=== PATIENT | male | born 1995 | race Caucasian/White ===

== ENCOUNTER 2018-01-22 10:10 | Emergency (ER) | payer OTHER ==
[~2018-01-22] VITALS: Ht 185.4 cm; Wt 111.4 kg
[2018-01-22 10:13] VITALS: TEMP 36.8; Ht 185.4 cm; Wt 111.4 kg
--- NOTE | 2018-01-22 11:29 | DIAGNOSTIC IMAGING REPORT ---
L WRIST MIN 3 VIEWS ROUTINE CLINICAL HISTORY: 23 years-old Male presenting with FOOSH pain over snuff box. TECHNIQUE: Frontal, bilateral oblique, and lateral views of the left wrist were obtained. COMPARISON: None. FINDINGS: No acute fracture or malalignment. No advanced degenerative change. No radiographic soft tissue abnormality. IMPRESSION: No acute osseous injury. Electronically signed by: Gianluca Mcclure M.D. 01/22/2018 11:28 AM Dictated Date/Time: 01/22/2018 11:27 AM
[2018-01-22 12:15] VITALS: BP 165/83; PULSE 69; O2SAT 98
--- NOTE | 2018-01-22 12:21 | EMERGENCY ROOM VISIT NOTE ---
History Report prepared by Scribe: Reno Zelaya Under the Supervision of: Dr. Chadwick Mixon M.D. First contact with patient: 10:15 Chief Complaint: WRIST PAIN Stated Complaint: LEFT WRIST PAIN, FELL AT WORK History of Present Illness The patient is a 23 year old male who presents to the Emergency Room with complaints of constant left wrist pain s/p fall occurring 30 minutes ago. He states that he slipped and fell while at work and landed on his left wrist. He did not hit his head or lose consciousness. The patient denies elbow pain. No pain anywhere else in the body. Source of History: patient Onset: 30 minutes ago Position: wrist (left) Timing: constant Associated Symptoms: + numbness (resolved) Note: The patient denies elbow pain. Review of Systems See HPI for pertinent positives and negatives. A total of ten systems were reviewed and were otherwise negative. Past Medical & Surgical Medical Problems: (1) No Known Active Medical Problems Family History No pertinent family history stated. Social History Smoking Status: Never Smoker Occupation Status: employed Current/Historical Medications No Active Prescriptions or Reported Meds Allergies Coded Allergies: Sulfa Antibiotics (Unverified Allergy, Unknown, rash, 01/22/18) Physical Exam Vital Signs Date Time Temp Pulse Resp B/P (MAP) Pulse Ox O2 Delivery O2 Flow Rate FiO2 01/22/18 12:15 69 16 165/83 98 Room Air 01/22/18 10:13 36.8 76 18 162/88 99 Room Air Physical Exam Physical Exam GENERAL: He is oriented to person, place, and time. He appears well-developed and well-nourished. He does not appear distressed. ____ HENT: Exam performed. Head: Normocephalic and atraumatic. Right Ear: External ear normal. No mastoid tenderness. Left Ear: External ear normal. No mastoid tenderness. Mouth/Throat: The oropharynx is clear and moist. No trismus in the jaw. No dental abscesses or uvula swelling. No oropharyngeal exudate or tonsillar abscesses. ____ EYES: Conjunctivae and EOM are normal. Pupils are equal, round, and reactive to light. Right eye exhibits no discharge. Left eye exhibits no discharge. No scleral icterus. ____ NECK: Normal range of motion. Neck supple. No JVD present. No spinous process tenderness present. No carotid bruit present. No rigidity. No tracheal deviation and normal range of motion present. No Brudzinski's sign and no Kernig 's sign noted. ____ CV: Normal rate, regular rhythm, normal heart sounds and intact distal pulses. There is no peripheral edema. Palpable radial pulses bue. ____ PULM/CHEST: Effort normal and breath sounds normal. No respiratory distress. No stridor. He has no wheezes. He has no rales. Chest Wall: He exhibits no tenderness. ____ ABD: The abdomen is soft. Bowel sounds are normal. He has no distension. No mass is present. There is no tenderness. There is no rebound, no guarding, no Alejandro's sign and no tenderness at McBurney's point. Rovsig negative MUSC/SKEL: Normal range of motion. Pain on palpation over the left snuff box. Full ROM of the left wrist. Full ROM of all joints of the bilateral hands. B/l Motor and sensation intact in radial, median, and ulnar nerve distributions. Compartments softs b/l. LYMPH: No cervical adenopathy. ____ NEURO: He is alert and oriented to person, place, and time. He has normal strength. No cranial nerve deficit or sensory deficit. Coordination and gait normal. GCS eye subscore is 4. GCS verbal subscore is 5. GCS motor subscore is 6. Cerebellar tests wnl. ____ SKIN: Skin is warm and dry. He is not diaphoretic. ____ PSYCH: He has a normal mood and affect. His behavior is normal. Judgment and thought content normal. ____ Medical Decision & Procedures ER Provider Diagnostic Interpretation: Radiology results as stated below per my review and radiologist interpretation: L WRIST MIN 3 VIEWS ROUTINE FINDINGS: No acute fracture or malalignment. No advanced degenerative change. No radiographic soft tissue abnormality. IMPRESSION: No acute osseous injury. Electronically signed by: Gianluca Mcclure M.D. 01/22/2018 11:28 AM ED Course 1018: The patient was evaluated in room C9. A complete history and physical exam was performed. 1145: Patient's x-ray is negative. He declines anything for pain. He was given return precautions, and will follow up with his PCP. The patient had his wrist splinted in Velcro wrist splint.. DISCHARGE - Plan of care discussed with patient and questions answered. The patient was given both verbal and printed discharge instructions. The patient verbalized understanding and ability to comply. The patient is to seek outpatient follow up as noted in the discharge instructions. The patient verbalized understanding and ability to comply. The patient is discharged in stable condition. The patient was instructed to return for worsening symptoms. Medical Decision Patient's x-ray is negative. He declines anything for pain. He was given return precautions, and will follow up with his PCP. The patient had his wrist splinted in Velcro wrist splint.. DISCHARGE - Plan of care discussed with patient and questions answered. The patient was given both verbal and printed discharge instructions. The patient verbalized understanding and ability to comply. The patient is to seek outpatient follow up as noted in the discharge instructions. The patient verbalized understanding and ability to comply. The patient is discharged in stable condition. The patient was instructed to return for worsening symptoms. Medication Reconcilliation Current Medication List: was personally reviewed by me Blood Pressure Screening Patient's blood pressure: Elevated blood pressure Blood pressure disposition: Referred to PCP Impression Primary Impression: Wrist pain, acute Scribe Attestation The scribe's documentation has been prepared under my direction and personally reviewed by me in its entirety. I confirm that the note above accurately reflects all work, treatment, procedures, and medical decision making performed by me. The chart was completed utilizing [employer] Speech voice recognition software. Grammatical errors, random word insertions, pronoun errors, and incomplete sentences are an occasional consequence of this system due to software limitations, ambient noise, and hardware issues. Any formal questions or concerns about the content, text, or information contained within the body of this dictation should be directly addressed to the physician for clarification. Departure Information Dispostion Home / Self-Care Prescriptions No Active Prescriptions or Reported Meds Referrals No Doctor, Assigned (PCP) Forms HOME CARE DOCUMENTATION FORM, IMPORTANT VISIT INFORMATION, WORK / SCHOOL INSTRUCTIONS Patient Instructions ED Sprain Wrist, My Jessy Zamudioy Health Problem Qualifiers Primary Impression: Wrist pain, acute Laterality: left Qualified Codes: M25.532 - Pain in left wrist
== END 2018-01-22 12:30 | disposition home or self-care (01) ==
LOC: C.EDB 10:13 → C.EDC 12:30
DX: M25.532 Pain in left wrist (principal); W01.0XXA Fall on same level from slipping, tripping and stumbling without subsequent striking against object, initial encounter; Y99.0 Civilian activity done for income or pay; R03.0 Elevated blood-pressure reading, without diagnosis of hypertension; Z88.2 Allergy status to sulfonamides